=== PATIENT | male | born 1990 | race Caucasian/White ===

== ENCOUNTER 2020-01-20 17:25 | Emergency (ER) | payer SELFPAY ==
[~2020-01-20] VITALS: Ht 177.8 cm; Wt 109.3 kg
[2020-01-20 17:40] VITALS: BP 130/81; TEMP 100.2
[2020-01-20] MEDS ORDERED: NYQUIL GENERIC PO (17:47)
[2020-01-20] MEDS ORDERED: MULTIPLE VITAMI1 TA5 PO (17:47)
[2020-01-20 18:16] LABS: STREP SCREEN POSITIVE
[2020-01-20 19:10] VITALS: PULSE 86
== END 2020-01-20 19:13 | disposition home or self-care (01) ==
LOC: COL.ER 17:25
PROVIDERS: Nurse Practitioner
DX: J02.0 Streptococcal pharyngitis (principal); F17.210 Nicotine dependence, cigarettes, uncomplicated
CPT/HCPCS: J0561